=== PATIENT | male | born 1970 | race Asian ===

== ENCOUNTER 2017-04-29 14:12 | Emergency (ER) | payer OTHER ==
[~2017-04-29] VITALS: Ht 165.1 cm; Wt 70.5 kg
[~2017-04-29 14:12] MED LIST: ALLO100T PO; AMLO5TAB66 PO; CIPR-278 PO; COLC0.6T69 PO; LISI-662 PO; METR500 PO
[2017-04-29] MEDS ORDERED: DEXAMETHASONE SOD PHOS 4 MG/ML VIAL IM ONE (17:30)
[2017-04-29 17:58] VITALS: BP 140/90
== END 2017-04-29 18:01 | disposition home or self-care (01) ==
LOC: EMS 14:14
DX: M10.9 Gout, unspecified (principal); M25.562 Pain in left knee; I10 Essential (primary) hypertension; F17.210 Nicotine dependence, cigarettes, uncomplicated
CPT/HCPCS: 96372; 99283; J1100

== ENCOUNTER 2017-10-15 12:32 | Inpatient (IN) | payer OTHER ==
[~2017-10-15] VITALS: Ht 165.1 cm; Wt 88.0 kg
[~2017-10-15 12:32] MED LIST changes: -CIPR-278 PO; +COLC0.6T67 PO; -COLC0.6T69 PO; -METR500 PO
[2017-10-15 14:21] LABS: BASOPHILS % (AUTO) 0.5 % (0.0-2.0); EOSINOPHILS % (AUTO) 3.9 % (1.0-6.0); HEMOGLOBIN 8.4 g/dL (13.5-17.5); LYMPHOCYTES # (AUTO) 1.8 K/uL (1.0-4.8); LYMPHOCYTES % (AUTO) 14.8 % (22.0-44.0); MEAN CORPUSCULAR HEMOGLOBIN 38.9 pg (26.0-34.0); MEAN CORPUSCULAR HGB CONC 35.1 G/dL (31.0-37.0); MEAN CORPUSCULAR VOLUME 111 fL (80-100); MONOCYTES # (AUTO) 1.5 K/uL (0.1-1.0); MONOCYTES % (AUTO) 12.8 % (2.0-9.0); NEUTROPHILS # (AUTO) 8.1 K/uL (1.8-7.7); RED BLOOD CELL COUNT(AUTO) 2.16 MIL/uL (4.50-5.90); RED CELL DISTRIBUTION WIDTH 15.7 % (11.5-14.5)
[2017-10-15 14:24] LABS: ANION GAP 4 mmol/L (8-16); CALCIUM, TOTAL 7.7 mg/dL (8.8-10.5); CARBON DIOXIDE 26 mmol/L (22-29); CHLORIDE 101 mmol/L (98-107); GLOMERULAR FILTR. RATE CALC > 60 mL/min (>60); GLUCOSE,RANDOM 105 mg/dL (70-110); POTASSIUM 4.3 mmol/L (3.5-5.1); SODIUM SERUM 131 mmol/L (136-145); UREA NITROGEN, BLOOD 13 mg/dL (7-18)
[2017-10-15 14:33] LABS: ALANINE AMINOTRANSFERASE 53 U/L (12-78); ALBUMIN 1.9 g/dL (3.4-5.0); ALKALINE PHOSPHATASE 259 U/L (46-116); ASPARTATE AMINOTRANSFERASE 111 U/L (15-37); BILIRUBIN,TOTAL 9.9 mg/dL (0.1-1.0); LIPASE 431 U/L (73-393); TOTAL PROTEIN, SERUM 7.8 g/dL (6.4-8.2)
[2017-10-15 14:45] LABS: PLATELET COUNT (AUTO) 84 K/uL (150-450)
[2017-10-15] MEDS ORDERED: ALBUTEROL SULFATE 2.5 MG/0.5 ML NEB SOLUTION NEB ONE (15:00)
[2017-10-15] MEDS ORDERED: IPRATROPIUM BROMIDE 0.5 MG/2.5 ML NEB SOLUTION NEB ONE (15:00)
[2017-10-15 16:23] LABS: APPEARANCE,URINE CLEAR (CLEAR); GLUCOSE, URINE (UA) NEGATIVE (NEGATIVE); KETONES,URINE NEGATIVE (NEGATIVE); LEUKOCYTE ESTERASE ,URINE NEGATIVE (NEGATIVE); NITRATE,URINE NEGATIVE (NEGATIVE); OCCULT BLOOD,URINE NEGATIVE (NEGATIVE); PROTEIN,URINE NEGATIVE (NEGATIVE)
[2017-10-15] MEDS ORDERED: IOVERSOL 320 MG/ML 100 ML VIAL ONE ×2 (16:30→16:31)
[2017-10-15 16:33] LABS: BILIRUBIN,URINE PRELIM. POSITIVE (NEGATIVE)
[2017-10-15 16:36] LABS: BACTERIA,URINE Rare /HPF (None Seen); RBC,URINE 0-2 /HPF (0-2); SQUAMOUS EPITHELIAL CELL,UR Rare /LPF (None Seen); WBC,URINE 0-2 /HPF (0-5)
[2017-10-15 17:34] LABS: INFLUENZA TYPE A NEGATIVE FOR TYPE A (NEGATIVE); INFLUENZA TYPE B NEGATIVE FOR TYPE B (NEGATIVE)
[2017-10-15] MEDS ORDERED: FUROSEMIDE 40 MG/4 ML VIAL IVP ONE (19:45)
[2017-10-15 21:16] LABS: LACTIC ACID 2.2 mmol/L (0.4-2.0)
[2017-10-15] MEDS ORDERED: 0.9% SODIUM CHLORIDE 10 ML SYRINGE IVP PRN ×2 (21:30→21:45)
[2017-10-15] MEDS ORDERED: ACETAMINOPHEN 325 MG TABLET PO PRN (21:30)
[2017-10-15] MEDS ORDERED: ONDANSETRON HCL 4 MG/2 ML VIAL IVP PRN ×2 (21:30→21:45)
[2017-10-15] MEDS ORDERED: OCTREOTIDE ACETATE 100 MCG/ML VIAL IVP ONE (21:45)
[2017-10-15] MEDS ORDERED: HydrALAZINE HCL 20 MG/ML VIAL IVP PRN (21:45)
[2017-10-15] MEDS ORDERED: IPRATROPIUM BROMIDE 0.5 MG/2.5 ML NEB SOLUTION NEB PRN (21:45)
[2017-10-15] MEDS ORDERED: MORPHINE SULFATE 2 MG/ML SYRINGE IVP PRN (21:45)
[2017-10-15] MEDS ORDERED: PANTOPRAZOLE SODIUM 40 MG/VIAL IVP ONE (21:45)
[2017-10-15] MEDS ORDERED: ALBUTEROL SULFATE 2.5 MG/0.5 ML NEB SOLUTION NEB PRN (21:45)
[2017-10-15 22:25] LABS: INR 1.9 (0.9-1.1); PROTHROMBIN TIME 19.6 SEC (9.4-11.6)
[2017-10-15 22:35] LABS: ACETAMINOPHEN < 2 mcg/mL (10-30)
[2017-10-15] MEDS: OCTREOTIDE ACETATE 500 MCG in DEXTROSE 5%-WATER 97.5 ML IV SCH (23:15)
[2017-10-15] MEDS: PANTOPRAZOLE SODIUM 80 MG in SODIUM CHLORIDE 0.9% 100 ML IV SCH (23:15)
[2017-10-15] MEDS: PIPERACILLIN/TAZO 3.375 GM/D5W 50 ML IV SCH (23:16)
[2017-10-15 23:47] VITALS: BP 136/77
[2017-10-16] MEDS ORDERED: INFLUENZA VIRUS VACCINE QVS 2017-18 (3YR+)/PF 60 MCG/0.5 ML SYRINGE IM ONE (00:30)
[2017-10-16] MEDS ORDERED: PNEUMOCOCCAL VACCINE POLYVALENT 0.5 ML VIAL [PPSV23] IM ONE (00:30)
[2017-10-16 02:32] LABS: HEMATOCRIT 22.2 % (41-53); HEMOGLOBIN 7.8 g/dL (13.5-17.5)
[2017-10-16 04:41] VITALS: BP 111/60
[2017-10-16] MEDS: PIPERACILLIN/TAZO 3.375 GM/D5W 50 ML IV SCH ×4 (06:18→22:59)
[2017-10-16 06:30] LABS: BASOPHILS % (AUTO) 0.7 % (0.0-2.0); EOSINOPHILS % (AUTO) 4.4 % (1.0-6.0); LYMPHOCYTES # (AUTO) 1.7 K/uL (1.0-4.8); LYMPHOCYTES % (AUTO) 17.5 % (22.0-44.0); MEAN CORPUSCULAR HEMOGLOBIN 40.2 pg (26.0-34.0); MEAN CORPUSCULAR HGB CONC 36.2 G/dL (31.0-37.0); MEAN CORPUSCULAR VOLUME 111 fL (80-100); MONOCYTES # (AUTO) 1.2 K/uL (0.1-1.0); MONOCYTES % (AUTO) 11.7 % (2.0-9.0); NEUTROPHILS # (AUTO) 6.6 K/uL (1.8-7.7); NEUTROPHILS % (AUTO) 65.7 % (40.0-70.0); PLATELET COUNT (AUTO) 81 K/uL (150-450); RED BLOOD CELL COUNT(AUTO) 1.98 MIL/uL (4.50-5.90); RED CELL DISTRIBUTION WIDTH 15.6 % (11.5-14.5)
[2017-10-16 07:06] VITALS: BP 153/99
[2017-10-16 07:15] VITALS: BP 127/75
[2017-10-16 07:36] LABS: ALANINE AMINOTRANSFERASE 53 U/L (12-78); ALBUMIN 1.7 g/dL (3.4-5.0); ALKALINE PHOSPHATASE 230 U/L (46-116); ANION GAP 9 mmol/L (8-16); ASPARTATE AMINOTRANSFERASE 102 U/L (15-37); CALCIUM, TOTAL 7.6 mg/dL (8.8-10.5); CARBON DIOXIDE 24 mmol/L (22-29); CHLORIDE 104 mmol/L (98-107); CHOL/HDL RATIO 2.3 (4.2-7.3); CHOLESTEROL 100 mg/dL (131-200); CREATININE 0.84 mg/dL (0.60-1.30); GLOMERULAR FILTR. RATE CALC > 60 mL/min (>60); GLUCOSE,RANDOM 140 mg/dL (70-110); HDL CHOLESTEROL 44 mg/dL (40-60); LDL CHOL (CALC.) 41 mg/dL (0-130); LIPASE 297 U/L (73-393); PHOSPHORUS 4.3 mg/dL (2.5-4.9); POTASSIUM 3.9 mmol/L (3.5-5.1); SODIUM SERUM 137 mmol/L (136-145); TOTAL PROTEIN, SERUM 7.4 g/dL (6.4-8.2); TRIGLYCERIDES 73 mg/dL (15-150); UREA NITROGEN, BLOOD 12 mg/dL (7-18)
[2017-10-16] MEDS: PANTOPRAZOLE SODIUM 80 MG in SODIUM CHLORIDE 0.9% 100 ML IV SCH ×2 (07:57→17:54)
[2017-10-16 08:07] LABS: AMPHET/METH SCREEN,URINE NEGATIVE (NEGATIVE); BARBITURATE SCREEN, URINE NEGATIVE (NEGATIVE); BENZODIAZEPINES SCREEN,URINE NEGATIVE (NEGATIVE); CANNABINOID SCREEN,URINE NEGATIVE (NEGATIVE); COCAINE SCREEN,URINE NEGATIVE (NEGATIVE); METHADONE SCREEN, URINE NEGATIVE (NEGATIVE); OPIATE SCREEN,URINE NEGATIVE (NEGATIVE)
[2017-10-16 08:12] LABS: PHENCYCLIDINE SCREEN,URINE NEGATIVE (NEGATIVE)
[2017-10-16 08:37] LABS: FERRITIN 1648 ng/mL (26-388); FREE T4 (FREE THYROXINE) 1.06 ng/dL (0.76-1.46); THYROID STIMULATING HORMONE 0.69 uIU/mL (0.36-3.74)
[2017-10-16 08:58] LABS: IRON, SERUM 124 mcg/dL (50-175); TOTAL IRON BINDING CAPACITY 124 mcg/dL (250-450)
[2017-10-16] MEDS: MULTIVITAMINS WITH MINERALS, THERAPEUTIC TABLET PO SCH (09:23)
[2017-10-16] MEDS: FOLIC ACID 1 MG TABLET PO SCH (09:23)
[2017-10-16] MEDS: OCTREOTIDE ACETATE 500 MCG in DEXTROSE 5%-WATER 97.5 ML IV SCH ×2 (09:23→17:54)
[2017-10-16] MEDS: THIAMINE HCL 100 MG TABLET PO SCH (09:23)
[2017-10-16] MEDS ORDERED: SODIUM CHLORIDE 0.9% 100 ML ONE (09:26)
[2017-10-16 11:24] VITALS: BP 130/51
[2017-10-16 11:39] LABS: HEMATOCRIT 21.7 % (41-53); HEMOGLOBIN 7.7 g/dL (13.5-17.5)
[2017-10-16] MEDS: NICOTINE 21 MG/24 HOUR PATCH TD SCH (12:33)
[2017-10-16 15:30] VITALS: BP 117/67
[2017-10-16] MEDS: SPIRONOLACTONE 50 MG TABLET PO SCH (17:52)
[2017-10-16] MEDS: FUROSEMIDE 20 MG TABLET PO SCH (17:52)
[2017-10-16 19:39] VITALS: BP 117/66
[2017-10-16 19:41] LABS: HEMATOCRIT 22.4 % (41-53); HEMOGLOBIN 7.8 g/dL (13.5-17.5)
[2017-10-17] VITALS (7 sets, daily range): BP systolic 113–137; BP diastolic 54–78
[2017-10-17 00:20] LABS: HEMOGLOBIN 7.2 g/dL (13.5-17.5)
[2017-10-17 00:43] LABS: HEMATOCRIT 20.4 % (41-53)
[2017-10-17] MEDS: PANTOPRAZOLE SODIUM 80 MG in SODIUM CHLORIDE 0.9% 100 ML IV SCH (05:18)
[2017-10-17] MEDS: OCTREOTIDE ACETATE 500 MCG in DEXTROSE 5%-WATER 97.5 ML IV SCH (05:18)
[2017-10-17] MEDS: PIPERACILLIN/TAZO 3.375 GM/D5W 50 ML IV SCH ×4 (05:20→20:35)
[2017-10-17 07:05] LABS: BASOPHILS % (AUTO) 1.1 % (0.0-2.0); EOSINOPHILS % (AUTO) 6.2 % (1.0-6.0); HEMATOCRIT 21.1 % (41-53); HEMOGLOBIN 7.6 g/dL (13.5-17.5); LYMPHOCYTES # (AUTO) 1.7 K/uL (1.0-4.8); LYMPHOCYTES % (AUTO) 19.6 % (22.0-44.0); MEAN CORPUSCULAR HEMOGLOBIN 40.2 pg (26.0-34.0); MEAN CORPUSCULAR HGB CONC 36.2 G/dL (31.0-37.0); MEAN CORPUSCULAR VOLUME 111 fL (80-100); MONOCYTES # (AUTO) 1.1 K/uL (0.1-1.0); MONOCYTES % (AUTO) 12.9 % (2.0-9.0); NEUTROPHILS # (AUTO) 5.2 K/uL (1.8-7.7); NEUTROPHILS % (AUTO) 60.2 % (40.0-70.0); PLATELET COUNT (AUTO) 75 K/uL (150-450); RED CELL DISTRIBUTION WIDTH 15.8 % (11.5-14.5)
[2017-10-17 07:42] LABS: ANION GAP 6 mmol/L (8-16); CALCIUM, TOTAL 7.5 mg/dL (8.8-10.5); CARBON DIOXIDE 27 mmol/L (22-29); CHLORIDE 101 mmol/L (98-107); CREATININE 0.77 mg/dL (0.60-1.30); GLOMERULAR FILTR. RATE CALC > 60 mL/min (>60); GLUCOSE,RANDOM 110 mg/dL (70-110); POTASSIUM 3.9 mmol/L (3.5-5.1); SODIUM SERUM 134 mmol/L (136-145); UREA NITROGEN, BLOOD 11 mg/dL (7-18)
[2017-10-17] MEDS: NICOTINE 21 MG/24 HOUR PATCH TD SCH (09:00)
[2017-10-17] MEDS ORDERED: MAGNESIUM SULFATE 2 GM in DEXTROSE 5%-WATER 50 ML IV PRN (09:15)
[2017-10-17] MEDS ORDERED: MAGNESIUM OXIDE 400 MG TABLET PO PRN (09:15)
[2017-10-17] MEDS ORDERED: MAGNESIUM SULFATE 4 GM/WATER 100 ML IV PRN (09:15)
[2017-10-17 09:19] LABS: ALBUMIN 1.7 g/dL (3.4-5.0)
[2017-10-17] MEDS ORDERED: SODIUM CHLORIDE 0.9% 1,000 ML IV ONE ×2 (11:00→11:21)
[2017-10-17 11:34] LABS: HEMOGLOBIN 7.4 g/dL (13.5-17.5)
[2017-10-17 11:55] LABS: HEMATOCRIT 20.8 % (41-53)
[2017-10-17] MEDS ORDERED: HYDROmorphone 2 MG/ML SYRINGE IVP PRN (12:30)
[2017-10-17] MEDS ORDERED: FentaNYL CITRATE-PF 100 MCG/2 ML VIAL IVP PRN (12:30)
[2017-10-17] MEDS ORDERED: MEPERIDINE-PF 25 MG/ML SYRINGE IVP PRN (12:30)
[2017-10-17 13:14] LABS: FOLATE SERUM 6.2 ng/mL (5.4-)
[2017-10-17] MEDS: SPIRONOLACTONE 50 MG TABLET PO SCH (14:35)
[2017-10-17] MEDS: THIAMINE HCL 100 MG TABLET PO SCH (14:36)
[2017-10-17] MEDS: FUROSEMIDE 20 MG TABLET PO SCH (14:36)
[2017-10-17] MEDS: PHYTONADIONE 10 MG/1 ML AMP PO SCH (14:36)
[2017-10-17] MEDS: FOLIC ACID 1 MG TABLET PO SCH (14:36)
[2017-10-17] MEDS: MULTIVITAMINS WITH MINERALS, THERAPEUTIC TABLET PO SCH (14:36)
[2017-10-17] MEDS: PANTOPRAZOLE SODIUM 40 MG/VIAL IVP SCH ×2 (15:09→20:35)
[2017-10-17 19:08] LABS: HEMOGLOBIN 7.3 g/dL (13.5-17.5)
[2017-10-17 19:13] LABS: HEMATOCRIT 20.4 % (41-53)
[2017-10-17] MEDS: OXYGEN THERAPY IH SCH (20:00)
[2017-10-18] VITALS (21 sets, daily range): BP systolic 113–188; BP diastolic 50–113
[2017-10-18 00:41] LABS: HEMOGLOBIN 7.1 g/dL (13.5-17.5)
[2017-10-18] MEDS: PIPERACILLIN/TAZO 3.375 GM/D5W 50 ML IV SCH ×4 (04:36→21:38)
[2017-10-18] MEDS ORDERED: PROPOFOL 1% 20 ML VIAL IVP ONE (06:04)
[2017-10-18] MEDS ORDERED: LIDOCAINE HCL/PF 2% 5 ML VIAL IM ONE (06:04)
[2017-10-18 06:51] LABS: PROTHROMBIN TIME 20.7 SEC (9.4-11.6)
[2017-10-18 07:22] LABS: ALANINE AMINOTRANSFERASE 41 U/L (12-78); ALBUMIN 1.7 g/dL (3.4-5.0); ALKALINE PHOSPHATASE 183 U/L (46-116); ANION GAP 4 mmol/L (8-16); ASPARTATE AMINOTRANSFERASE 83 U/L (15-37); BILIRUBIN,TOTAL 12.2 mg/dL (0.1-1.0); CALCIUM, TOTAL 7.6 mg/dL (8.8-10.5); CARBON DIOXIDE 27 mmol/L (22-29); CHLORIDE 103 mmol/L (98-107); CREATININE 0.84 mg/dL (0.60-1.30); GLOMERULAR FILTR. RATE CALC > 60 mL/min (>60); GLUCOSE,RANDOM 137 mg/dL (70-110); POTASSIUM 4.1 mmol/L (3.5-5.1); SODIUM SERUM 134 mmol/L (136-145); TOTAL PROTEIN, SERUM 7.2 g/dL (6.4-8.2); UREA NITROGEN, BLOOD 12 mg/dL (7-18)
[2017-10-18 07:24] LABS: HEMOGLOBIN 6.9 g/dL (13.5-17.5)
[2017-10-18 07:25] LABS: HEMATOCRIT 19.3 % (41-53)
[2017-10-18] MEDS: OXYGEN THERAPY IH SCH ×2 (08:00→21:37)
[2017-10-18] MEDS: NICOTINE 21 MG/24 HOUR PATCH TD SCH (09:00)
[2017-10-18] MEDS: THIAMINE HCL 100 MG TABLET PO SCH (09:01)
[2017-10-18] MEDS: PHYTONADIONE 10 MG/1 ML AMP PO SCH (09:01)
[2017-10-18] MEDS: FOLIC ACID 1 MG TABLET PO SCH (09:01)
[2017-10-18] MEDS: MULTIVITAMINS WITH MINERALS, THERAPEUTIC TABLET PO SCH (09:01)
[2017-10-18] MEDS: FUROSEMIDE 20 MG TABLET PO SCH (09:01)
[2017-10-18] MEDS: SPIRONOLACTONE 50 MG TABLET PO SCH (09:01)
[2017-10-18] MEDS: PANTOPRAZOLE SODIUM 40 MG/VIAL IVP SCH ×2 (09:01→21:37)
[2017-10-18] MEDS ORDERED: SODIUM CHLORIDE 0.9% 250 ML IV ONE ×2 (10:17→15:22)
[2017-10-18] MEDS: LACTULOSE 20 GM/30 ML SOLUTION UDCUP PO SCH ×2 (11:13→21:00)
[2017-10-18] MEDS ORDERED: SODIUM CHLORIDE 0.9% 500 ML IV ONE (12:03)
[2017-10-18 17:57] LABS: HEMOGLOBIN 8.5 g/dL (13.5-17.5)
[2017-10-18 22:12] LABS: ABG A-A DIFF O2 36.9 mmHg (10-20.0); ABG BASE EXCESS 0.8 mmol/L (-2.0-3.0); ABG CARBOXYHEMOGLOBIN 4.2 % (0.0-1.5); ABG HCO3 25.5 mmol/L (22.0-26.0); ABG METHEMOGLOBIN 0.3 % (0.0-1.5); ABG OXYGEN CONTENT 11.4 mL/dL (15.0-23.0); ABG OXYGEN SATURATION 99.5 % (95.0-98.0); ABG PCO2 29 mmHg (35-45); ABG PH 7.526 (7.35-7.450); ABG TOTAL HEMOGLOBIN 8.3 G/dL (12.0-18.0); PO2, ARTERIAL BG 128.4 mmHg (88.0-96.0); SITE, BLOOD GAS RT RADIAL; SOURCE, BLOOD GAS ARTERIAL; TEMPERATURE, FAHRENHEIT, BG 98.5 FAHREN (96.0-98.6)
[2017-10-18 22:13] LABS: O2 DEVICE,BLOOD GAS CANNULA (ROOM AIR)
[2017-10-18] MEDS ORDERED: MANNITOL IV ONE (22:45)
[2017-10-18] MEDS ORDERED: MANNITOL 25%-12.5 GM/50 ML VIAL IVP ONE (22:45)
[2017-10-18] MEDS ORDERED: PROPOFOL 1000 MG/ISO-OSM 100 ML IV ONE (22:46)
[2017-10-18] MEDS ORDERED: ETOMIDATE 2 MG/ML 10 ML VIAL IVP ONE (23:14)
[2017-10-18] MEDS ORDERED: RAPID SEQUENCE KIT [RSI] 1 EACH KIT ONE (23:40)
[2017-10-18] MEDS ORDERED: SUCCINYLCHOLINE CHLORIDE 20 MG/ML 10 ML VIAL ONE (23:41)
[2017-10-19 00:23] LABS: GLUCOSE,POINT OF CARE 149 MG/DL (70-110)
== END 2017-10-18 23:15 | disposition short-term general hospital (02) | DRG 661 ==
LOC: EMS 12:34 → 6N 21:12 → 5S 21:12
PROVIDERS: ADMIT Internal Medicine; ATTEND Internal Medicine
PROC: 0DJ08ZZ Inspection of Upper Intestinal Tract, Via Natural or Artificial Opening Endoscopic (ICD-10-PCS; principal; 2017-10-17 12:00)
PROC: 30233K1 Transfusion of Nonautologous Frozen Plasma into Peripheral Vein, Percutaneous Approach (ICD-10-PCS; 2017-10-18)
PROC: 30233K1 Transfusion of Nonautologous Frozen Plasma into Peripheral Vein, Percutaneous Approach (ICD-10-PCS; 2017-10-18)
PROC: 30233N1 Transfusion of Nonautologous Red Blood Cells into Peripheral Vein, Percutaneous Approach (ICD-10-PCS; 2017-10-18)
PROC: 5A1935Z Respiratory Ventilation, Less than 24 Consecutive Hours (ICD-10-PCS; 2017-10-18)
PROC: 0BH17EZ Insertion of Endotracheal Airway into Trachea, Via Natural or Artificial Opening (ICD-10-PCS; 2017-10-18)
DX: D68.4 Acquired coagulation factor deficiency (principal); I61.0 Nontraumatic intracerebral hemorrhage in hemisphere, subcortical; J90 Pleural effusion, not elsewhere classified; K85.90 Acute pancreatitis without necrosis or infection, unspecified; E87.2 Acidosis; K76.6 Portal hypertension; D62 Acute posthemorrhagic anemia; D69.2 Other nonthrombocytopenic purpura; K70.31 Alcoholic cirrhosis of liver with ascites; D69.6 Thrombocytopenia, unspecified; K92.2 Gastrointestinal hemorrhage, unspecified; K52.9 Noninfective gastroenteritis and colitis, unspecified; F10.20 Alcohol dependence, uncomplicated; I51.7 Cardiomegaly; M10.9 Gout, unspecified; E80.6 Other disorders of bilirubin metabolism; F17.200 Nicotine dependence, unspecified, uncomplicated; J98.11 Atelectasis; H53.2 Diplopia; K31.89 Other diseases of stomach and duodenum; K80.20 Calculus of gallbladder without cholecystitis without obstruction; R13.10 Dysphagia, unspecified; Z79.899 Other long term (current) drug therapy; R04.0 Epistaxis; K06.8 Other specified disorders of gingiva and edentulous alveolar ridge; K20.9 Esophagitis, unspecified
CPT/HCPCS: 36430; 70450; 74177; 76700; 80074; 80307; 82247; 82248; 82271; 82607; 82728; 82746; 82805; 82962; 83540; 83550; 83605; 83735; 84100; 84439; 84443; 85014; 85018; 86850; 86900; 86901; 86920; 86927; 87040; 87804; 93005; 93306; 93970; 96374; 96375; 99291; 99406; C9113; G0480; G0481; J0330; J1940; J2150; J2354; J2405; J2543; J2704; J3430; J3475; J3490; J7030; J7040; J7050; J7060; P9016; P9017